=== PATIENT | male | born 1950 | race Caucasian/White ===

== ENCOUNTER → 2016-12-29 | Outpatient (CLI) | payer OTHER | LOC: BHFA 10:30 | PROVIDERS: ATTEND Internal Medicine Cardiovascular Disease | DX: I48.91 Unspecified atrial fibrillation (principal) ==

== ENCOUNTER → 2017-01-18 | Outpatient (CLI) | payer OTHER | LOC: CIMAGING 10:33 | PROVIDERS: ATTEND Family Medicine | DX: R05 Cough (principal); R91.8 Other nonspecific abnormal finding of lung field | CPT/HCPCS: 71020-PO ==

== ENCOUNTER → 2017-01-27 | Outpatient (CLI) | payer OTHER | LOC: BHFA 09:00 | PROVIDERS: ATTEND Internal Medicine Cardiovascular Disease | DX: I48.91 Unspecified atrial fibrillation (principal) ==

== ENCOUNTER 2017-04-27 14:32 | Emergency (ER) | payer OTHER ==
[2017-04-27 14:42] VITALS: BP 123/74; PULSE 75; RESP 18; TEMP 97.9; O2SAT 91
--- NOTE | 2017-04-27 14:59 | EDPHY ---
H & P Smoking Status: Never smoked Time Seen by Provider: 04/27/17 14:36 HPI/ROS: HPI Swelling, redness lower abdomen. 66-year-old male by private vehicle. He complains of a red and tender swelling to the left lower quadrant of his abdomen on the outer aspect of his pannus fold. He noticed this about 3-4 days ago. He states it has been getting progressively worse and has been draining a purulent fluid intermittently. He has been wearing a Band-Aid over it. He has not had a fever. He has no other complaints. There is no history of trauma. ROS: Constitutional: No fever, no chills. No weakness. Eyes: No discharge. No changes in vision. ENT: No sore throat. No nasal congestion or rhinorrhea. Respiratory: No cough. No shortness of breath. Cardiac: No chest pain, no palpitations. Gastrointestinal: No abdominal pain, no vomiting, no diarrhea. Genitourinary: No hematuria. No dysuria or increased frequency with urination. Musculoskeletal: No back pain. No neck pain. No myalgias or arthralgias. Skin: As above. Neurological: No headache. No focal weakness or altered sensation. Past medical history: Atrial fibrillation. AL with stents placed. Hypertension. He is on aspirin currently. No other anticoagulation or antiplatelet agent. Social history: Nonsmoker. Here by himself. Physical Exam: General Appearance: Alert, no distress. This patient is responding to questions appropriately and in full sentences. This patient appears well- hydrated and well-nourished. Eyes: Pupils equal and round no pallor or injection. No lid edema, erythema or injection. Gastrointestinal: Moderately obese habitus. Abdomen is soft and nontender, no masses, bowel sounds normal. No focal tenderness at McBurney's point. No Benjamin sign. Left lower abdomen outer pannus significant for a indurated area that is erythematous about the size of a silver dollar. It has another 3 cm of spreading erythema without edema. At Center there is a scabbed area about the size of a quarter some mild purulent oozing. It does not feel fluctuant. Neurological: Motor sensory function is grossly intact. Cranial nerves are normal. Gait is normal. Skin: Warm and dry, no rashes. Musculoskeletal: Neck is supple and nontender. Extremities are symmetrical. All joints range without pain or impingement. Psychiatric: No agitation. No depression. Database: EKG: Imaging: Procedures: Emergency department course: Patient's care turned over to Dr. Alfred Bhagat at 3:00 p.m., expected course is incision and drainage of shallow left lower abdomen abscess. Would consider placement on Bactrim and Keflex considered surrounding erythema and then outpatient follow-up. Differential Diagnosis: The differential diagnosis on this patient includes but is not limited to localized lower abdominal cellulitis, left lower abdomen abscess. This represents a partial list of diagnoses considered. These considerations are based on history, physical exam, past history, reassessment and diagnostic testing. (Coleman Ma) Constitutional: Initial Vital Signs Temperature (C) 36.6 C 04/27/17 14:34 Heart Rate 75 04/27/17 14:34 Respiratory Rate 18 04/27/17 14:34 Blood Pressure 123/74 H 04/27/17 14:34 O2 Sat (%) 91 L 04/27/17 14:34 O2 Delivery Mode Room Air Allergies/Adverse Reactions: rivaroxaban [From Xarelto] Allergy (Verified 04/27/17 14:47) spironolactone Allergy (Verified 04/27/17 14:47) Home Medications: Medication Instructions Recorded Aspirin 04/27/17 Carvedilol 04/27/17 Digoxin 04/27/17 Doxycycline Hyclate [Vibramycin 100 mg PO BID #20 cap 04/27/17 100 MG (*)] Furosemide 04/27/17 Metolazone 04/27/17 Potassium Chloride 04/27/17 Taurine 04/27/17 VITAMIN E 04/27/17 Vitamin C 04/27/17 Medical Decision Making Procedures: I&D abscess - this patient was turned over to be about [facility] with a lower abdominal wall abscess with surrounding mild cellulitis. I obtained verbal consent for I and D and scrubbed the area with wound cleanser. Under sterile conditions I injected the affected area with 1% plain lidocaine with sodium bicarb buffer, 27 gauge needle-3 mL with good effect. I then used a 11. Scalpel blade and made a small T-shaped incision. There is a small amount of purulent material release which is sent for culture. There is some fibrin this white material that seems impregnated with purulent material that is difficult to remove so use tissue scissors to mildly debride this from the wound leaving a 1 cm superficial ulcerative type wound. There is an area of surrounding erythema approximately 9 x 3 cm with no other fluctuance. Patient tolerated this well without complications. (Alfred Bhagat) ED Course/Re-evaluation: I counseled the patient regarding his abscess and cellulitis. I am suspicious for potential MR given the appearance of the abscess intake. We will therefore put him on doxycycline with culture pending. He also warm packs to 3 times a day, clean the wound daily and return for any worsening despite the treatment plan. (Alfred Bhagat) Departure - Departure Disposition: Home, Routine, Self-Care Clinical Impression: Cutaneous abscess of abdominal wall Cellulitis Qualifiers: Site of cellulitis: other site Qualified Code(s): L03.818 - Cellulitis of other sites Condition: Good Instructions: Abscess (ED) Additional Instructions: Diagnosis: Abdominal wall abscess with cellulitis Plan: Clean the wound daily with warm soapy water and take doxycycline antibiotic. Take a probiotic or yogurt while on doxycycline to prevent diarrhea. Use sunscreen while on this antibiotic as it will make your skin more sensitive burn Apply warm packs 1 - 3 times a day on the wound until symptoms improve Return for recheck if you have not significantly improved over the next week with the treatment plan Return sooner if you have worsening symptoms despite the plan Referrals: Sara Sandhu MD [Primary Care Provider] - As per Instructions Prescriptions: Doxycycline Hyclate [Vibramycin 100 MG (*)] 100 mg PO BID #20 cap
== END 2017-04-27 16:00 | disposition home or self-care (01) ==
LOC: CED 14:32
PROC: 0H97XZZ Drainage of Abdomen Skin, External Approach (ICD-10-PCS; principal; 2017-04-27)
DX: L02.211 Cutaneous abscess of abdominal wall (principal); L03.311 Cellulitis of abdominal wall; I10 Essential (primary) hypertension; I25.2 Old myocardial infarction; Z79.82 Long term (current) use of aspirin; Z95.5 Presence of coronary angioplasty implant and graft